=== PATIENT | male | born 1950 | race Caucasian/White ===

== ENCOUNTER → 2016-06-16 | Outpatient (CLI) | payer MEDICARE, OTHER ==
[2014-02-04 14:40] VITALS: BP 125/74
[~2016-06-16] MED LIST: CLON0.5T3 PO; IPRA4AER IH; PHEN100C PO; WARF1TAB PO
--- NOTE | 2016-06-16 10:09 | RAD ---
Abdominal aortic ultrasound, 06/16/2016: History: Screening for abdominal aortic aneurysm, smoker Duplex evaluation of the abdominal aorta was performed including grayscale, color-flow and spectral Doppler analysis. There are moderate scattered atherosclerotic plaques. The aorta is not dilated. The proximal iliac arteries are unremarkable. IMPRESSION: Aortic atherosclerosis without evidence of aneurysm.
== END | disposition home or self-care (01) ==
LOC: US 07:42
PROVIDERS: ATTEND Family Medicine
DX: Z13.6 Encounter for screening for cardiovascular disorders (principal); I70.0 Atherosclerosis of aorta; Z72.0 Tobacco use
CPT/HCPCS: 76770

== ENCOUNTER → 2016-11-09 | Outpatient (CLI) | payer MEDICARE, OTHER ==
[2014-02-04 14:40] VITALS: BP 125/74
[~2016-11-09] MED LIST changes: -WARF1TAB PO; +WARF1TAB74 PO
--- NOTE | 2016-11-09 13:12 | RAD ---
Right knee, 3 views, 11/09/2016: History: Knee pain AP standing and tangential patellar views of both knees were obtained as well as a weightbearing lateral view of the right knee, as requested. The knee joint spaces are well preserved. No fracture or dislocation is identified. The right patellofemoral articulation shows no abnormality. No significant joint effusion is seen. IMPRESSION: No significant right knee abnormality is detected.
== END | disposition home or self-care (01) ==
LOC: DXRAD 08:48
PROVIDERS: ATTEND Orthopaedic Surgery
DX: M25.561 Pain in right knee (principal)
CPT/HCPCS: 73564

== ENCOUNTER 2016-11-15 11:53 | Emergency (ER) | payer MEDICARE, OTHER ==
[~2016-11-15] VITALS: Ht 177.8 cm; Wt 67.1 kg
[2016-11-15 11:53] VITALS: BP 138/74
[2016-11-15] MEDS ORDERED: LIDOCAINE 1%/EPI 1:100,000 20 ML VIAL. IJ ONE (12:30)
[2016-11-15] MEDS ORDERED: LIDOCAINE 2%/EPI 1:100,000 20 ML VIAL. IJ ONE (12:30)
--- NOTE | 2016-11-15 12:42 | PHYS DOC ---
Past History Past Medical History: Asthma, Seizure, Other Past Surgical History: Cholecystectomy, Other Alcohol Use: Occasionally Drug Use: None Adult General Chief Complaint Chief Complaint: LACERATION/AVULSION HPI HPI Patient is a 66 year old M who presents with laceration on the right lower leg. This happened approximately 2 hours prior to arrival when he was tilling his garden. He was seen at [facility]. His wound was cleaned and dressed. He was advised to be seen in the emergency department for wound closure. No antibiotic was prescribed to him at that time. His risk factors include that he is anticoagulated with warfarin Review of Systems Review of Systems Constitutional: Denies fever or chills [] Eyes: Denies change in visual acuity, redness, or eye pain [] HENT: Denies nasal congestion or sore throat [] Respiratory: Denies cough or shortness of breath [] Cardiovascular: No additional information not addressed in HPI [] GI: Denies abdominal pain, nausea, vomiting, bloody stools or diarrhea [] : Denies dysuria or hematuria [] Musculoskeletal: Denies back pain or joint pain [] Integument: Negative except history of present illness Neurologic: Denies headache, focal weakness or sensory changes [] Endocrine: Denies polyuria or polydipsia [] Family History Family History Noncontributory Current Medications Current Medications Current Medications Medications (Trade) Dose Ordered Sig/Raheel Start Time Stop Time Status Last Admin Dose Admin Lidocaine/ Epinephrine (Xylocaine 1%-Epi 1:100,000) 20 ml 1X ONCE 11/15/16 12:30 11/15/16 12:31 DC Lidocaine/ Epinephrine (Xylocaine 2%-Epi 1:100,000) 20 ml 1X ONCE 11/15/16 12:30 11/15/16 12:31 DC Home medications were reviewed Allergies Allergies Allergies Coded Allergies Type Severity Reaction Last Updated Verified iodine Allergy Unknown 02/04/14 No Uncoded Allergies Type Severity Reaction Last Updated Verified IV dye Allergy Unknown 02/04/14 Physical Exam Physical Exam Constitutional: Well developed, well nourished, no acute distress, non-toxic appearance. [] HENT: Normocephalic, atraumatic, Eyes: EOMI, conjunctiva normal, no discharge. [] Cardiovascular:Heart rate regular rhythm, no murmur [] Lungs & Thorax: Bilateral breath sounds clear to auscultation [] Skin: Warm, dry, no erythema, no rash. [] L shaped laceration on the anterior right lower leg. Approximately 2 cm on each side of the. The laceration resulted in a thin skin flap at the edges and was deeper centrally. The wound was clean and hemostatic Neurologic: Alert and oriented X 3, normal motor function, normal sensory function, no focal deficits noted. [] Psychologic: Affect normal, judgement normal, mood normal. [] Current Patient Data Vital Signs Vital signs normal please refer to nursing documentation for specifics Radiology/Procedures Radiology/Procedures Indication: [] Procedure: The patient was placed in the appropriate position. The wound was cleaned with copious soaked in sterile water. The wound was dried and chlorhexidine was used around the wound. 2% lidocaine with epi was used to anesthetize the wound.The laceration was closed using 5-0 Ethilon. The wound area was then dressed with Tegaderm. Total repaired wound length: 4 cm. Wound description as above. The patient tolerated the procedure well. Complications: None. Course & Med Decision Making Course & Med Decision Making Pertinent Labs and Imaging studies reviewed. (See chart for details) Antibiotics were discussed and declined. Lauri was able to verbalize understanding that given the nature of his wound infection was possible. She was also able to verbalize that infection may result in or permanent disability if not treated appropriately. He declined a prophylactic antibiotic instead stating that he would be seen by his primary care doctor as soon as possible if he developed signs or symptoms of infection. Education was provided regarding signs and symptoms of infection including but not limited to warmth, redness, swelling and pain Dragon Disclaimer Dragon Disclaimer This chart was dictated in whole or in part using Voice Recognition software in a busy, high-work load, and often noisy Emergency Department environment. It may contain unintended and wholly unrecognized errors or omissions. Departure Departure: Impression: Primary Impression: Laceration of right lower leg Disposition: 01 HOME, SELF-CARE Condition: STABLE Referrals: COLETTE WOLF MD (PCP) Patient Instructions: Laceration Care, Adult Additional Instructions: Lauri was seen in the emergency department for laceration. No emergency medical condition was found on history or physical exam. His wound was cleaned and repaired. He was advised to follow-up for suture removal in 7-10 days. Education was provided regarding signs and symptoms of infection. If he develops signs or symptoms of infection he was advised to be seen as soon as possible by his physician or to return to the emergency room. Problem Qualifiers Primary Impression: Laceration of right lower leg Encounter type: initial encounter Qualified Codes: S81.811A - Laceration without foreign body, right lower leg, initial encounter COLETTE MAGALLON MD Nov 15, 2016 12:42
== END 2016-11-15 12:45 | disposition home or self-care (01) ==
LOC: ER 11:53
DX: S81.811A Laceration without foreign body, right lower leg, initial encounter (principal); J45.909 Unspecified asthma, uncomplicated; Z91.041 Radiographic dye allergy status; X58.XXXA Exposure to other specified factors, initial encounter; Y93.89 Activity, other specified; Y99.8 Other external cause status; Y92.89 Other specified places as the place of occurrence of the external cause
CPT/HCPCS: 12002; 99283-25

== ENCOUNTER 2016-11-16 09:44 | Emergency (ER) | payer MEDICARE, OTHER ==
[~2016-11-16] VITALS: Ht 177.8 cm; Wt 67.1 kg
[2016-11-16 10:05] VITALS: BP 140/85
--- NOTE | 2016-11-16 15:10 | ED.ADGEN ---
Past History Past Medical History: Asthma, Seizure, Other Past Surgical History: Cholecystectomy, Other Alcohol Use: Occasionally Drug Use: None Adult General Chief Complaint Chief Complaint Wound recheck [facility] HPI Patient is a 66-year-old male on Coumadin who is evaluated and treated emergency department yesterday for laceration of left lower leg who presents for wound reevaluation. Patient was yesterday while in the emergency department and a Tegaderm was placed over the laceration site. Patient noted bright blood trapped underneath Tagaderm site presented in was concern for possible ongoing bleeding presents for reevaluation. On evaluation, the patient does not have active bleeding. There is minimal red blood around margins of wound, which is otherwise intact. Patient has his INR checked monthly and is due to have his INR rechecked in the next 2 days. No other acute symptoms or complaints Review of Systems Review of Systems ROS as per HPI. All other ROS are negative.[] Allergies Allergies Allergies Coded Allergies Type Severity Reaction Last Updated Verified iodine Allergy Unknown 02/04/14 No Uncoded Allergies Type Severity Reaction Last Updated Verified IV dye Allergy Unknown 02/04/14 Physical Exam Physical Exam Constitutional: Well developed, well nourished, no acute distress, non-toxic appearance. [] HENT: Normocephalic, atraumatic, bilateral external ears normal, oropharynx moist, no oral exudates, nose normal. [] Eyes: PERRLA, EOMI, conjunctiva normal, no discharge. [] Neck: Normal range of motion, no tenderness, supple, no stridor. [] Cardiovascular:Heart rate regular rhythm, no murmur [] Lungs & Thorax: Bilateral breath sounds clear to auscultation [] Abdomen: Bowel sounds normal, soft, no tenderness, no masses, no pulsatile masses. [] Skin: Warm, dry, no erythema, no rash. [] Back: No tenderness. [] Extremities: No tenderness, no cyanosis, no clubbing, ROM intact, no edema. [] Neurologic: Alert and oriented. [] Psychologic: Affect normal, judgement normal, mood normal. [] Current Patient Data Vital Signs Vital Signs Date Time Temp Pulse Resp B/P (MAP) Pulse Ox O2 Delivery O2 Flow Rate FiO2 11/16/16 10:05 65 18 140/85 (103) 98 Room Air 11/16/16 09:45 97.8 EKG EKG [] Radiology/Procedures Radiology/Procedures : Course & Med Decision Making Course & Med Decision Making Pertinent Labs and Imaging studies reviewed. (See chart for details) [Wound dressing changed. Patient instructed to follow up with PCP for INR. Typical wound care instructions improved. ] Final Impression Final Impression [1. Wound Recheck] Problems: Dragon Disclaimer Dragon Disclaimer This electronic medical record was generated, in whole or in part, using a voice recognition dictation system. LAURA OCHOA DO Nov 16, 2016 15:10
== END 2016-11-16 10:05 | disposition home or self-care (01) ==
LOC: ER 09:44
DX: S81.812A Laceration without foreign body, left lower leg, initial encounter (principal); J45.909 Unspecified asthma, uncomplicated; Z91.041 Radiographic dye allergy status; X58.XXXA Exposure to other specified factors, initial encounter; Y93.89 Activity, other specified; Y99.8 Other external cause status; Y92.89 Other specified places as the place of occurrence of the external cause
CPT/HCPCS: 99283

== ENCOUNTER 2016-11-25 08:15 | Emergency (ER) | payer MEDICARE, OTHER ==
[2016-11-25 08:25] VITALS: BP 127/80
--- NOTE | 2016-11-25 08:56 | PHYS DOC ---
Past History Past Medical History: Asthma, Seizure, Other Past Surgical History: Cholecystectomy, Other Alcohol Use: Occasionally Drug Use: None Adult General Chief Complaint Chief Complaint: SUTURE/STAPLE REMOVAL HPI HPI 66-year-old male presenting the emergency department after having a wound repair by simple interrupted sutures about 10 days ago. He presents for suture removal. He reports his wound is feeling better. ED course: 66-year-old male presenting to the emergency department for wound reevaluation and suture removal. Sutures were removed without any complications. The wound is healing without any complications. The patient was then discharged home in stable condition to follow up with their primary care physician over the next 2-3 days. They were to return if their symptoms worsened or if they were concerned for any reason. [id number] discharge instructions and return precautions were given. Patient's questions were answered to their satisfaction. Patient is comfortable plan. Allergies Allergies Allergies Coded Allergies Type Severity Reaction Last Updated Verified iodine Allergy Unknown 02/04/14 No Uncoded Allergies Type Severity Reaction Last Updated Verified IV dye Allergy Unknown 02/04/14 Physical Exam Physical Exam Constitutional: Well developed, well nourished, no acute distress, non-toxic appearance. [] HENT: Normocephalic, atraumatic, bilateral external ears normal, oropharynx moist, no oral exudates, nose normal. [] Eyes: PERRLA, EOMI, conjunctiva normal, no discharge. [] Neck: Normal range of motion, no tenderness, supple, no stridor. [] Cardiovascular:Heart rate regular rhythm, no murmur [] Lungs & Thorax: Bilateral breath sounds clear to auscultation [] Abdomen: Bowel sounds normal, soft, no tenderness, no masses, no pulsatile masses. [] Skin: Warm, dry, no erythema, no rash. [] Back: No tenderness, no CVA tenderness. [] Extremities: No tenderness, no cyanosis, no clubbing, ROM intact, no edema. [] Neurologic: Alert and oriented X 3, normal motor function, normal sensory function, no focal deficits noted. [] Psychologic: Affect normal, judgement normal, mood normal. [] EKG EKG [] Radiology/Procedures Radiology/Procedures [] Course & Med Decision Making Course & Med Decision Making Pertinent Labs and Imaging studies reviewed. (See chart for details) [] Dragon Disclaimer Dragon Disclaimer This chart was dictated in whole or in part using Voice Recognition software in a busy, high-work load, and often noisy Emergency Department environment. It may contain unintended and wholly unrecognized errors or omissions. Departure Departure: Impression: Primary Impression: Encounter for evaluation of wound Disposition: HOME, SELF-CARE Condition: STABLE Referrals: COLETTE WOLF MD (PCP) Patient Instructions: Wound Care, [id number] Additional Instructions: Thank you for allowing us to participate in your care today. Followup with your primary care physician in 3 days if your symptoms do not improve. Call your Primary Doctor tomorrow and inform them of your visit today. If you do not have a primary care provider you can ask for a list of our primary care providers. Return to the emergency department you have any new or concerning findings. This should be evaluated by the primary care physician and any necessary consulting services for continued management within a few days after discharge. Return to emergency room if you have any new or concerning symptoms including but not limited to fever, chills, nausea, vomiting, intractable pain, any new rashes, chest pain, shortness of air, uncontrolled bleeding, difficulty breathing, and/or vision loss. JESENIA NEGRON MD Nov 25, 2016 08:56
== END 2016-11-25 09:00 | disposition home or self-care (01) ==
LOC: ER 08:15
DX: S81.811D Laceration without foreign body, right lower leg, subsequent encounter (principal); J45.909 Unspecified asthma, uncomplicated; Z91.041 Radiographic dye allergy status; X58.XXXD Exposure to other specified factors, subsequent encounter; Y99.8 Other external cause status; Y92.89 Other specified places as the place of occurrence of the external cause
CPT/HCPCS: 99281

== ENCOUNTER 2016-12-10 09:20 | Emergency (ER) | payer MEDICARE, OTHER ==
[~2016-12-10] VITALS: Ht 177.8 cm; Wt 67.1 kg
[2016-12-10 09:30] VITALS: BP 133/65
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
--- NOTE | 2016-12-10 10:11 | RAD ---
CT scan of the head without contrast 12/10/2016 Clinical History: Patient hit his head on a dresser this morning.. Technique: Unenhanced, contiguous, 5 mm axial sections were obtained through the head. One or more of the following individualized dose reduction techniques were utilized for this study: 1. Automated exposure control. 2. Adjustment of the mA and/or kV according to patient size. 3. Use of iterative reconstruction technique. Findings: Comparison study is dated 02/04/2014. Patient is post right frontal parietal hole placement. Postsurgical changes are seen involving medial aspects of the maxillary sinuses and ethmoid air cells bilaterally. 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 Prominent CSF collection is seen posterior to the cerebellum which is unchanged. Asymmetric enlargement of the occipital horn of the right lateral ventricle is unchanged. There is generalized parenchymal atrophy. No acute focal abnormality is seen. No skull fracture is noted. Impression: No acute intracranial abnormality is seen. CT scan of the cervical spine without contrast 12/10/2016 Clinical history: Neck pain post injury. Technique: Unenhanced, contiguous, 0.625 mm axial sections were obtained through the cervical spine. 3 mm reconstructed sagittal, axial, and and coronal images were obtained. One or more of the following individualized dose reduction techniques were utilized for this study: 1. Automated exposure control. 2. Adjustment of the mA and/or kV according to patient size. 3. Use of iterative reconstruction technique. Findings: Sagittal and coronal reconstructed images demonstrate mild lateral curvature of the cervical spine convex to the left. There is straightening of the normal cervical lordosis. Degenerative changes consisting of disc space narrowing, vertebral endplate sclerosis and mild anterior and posterior vertebral body osteophyte formation are seen predominantly at C6-7. No fracture or subluxation of the cervical vertebrae seen. Degenerative changes are seen involving the uncovertebral and facet joints throughout the cervical disc spaces. Impression: No fracture or subluxation of the cervical vertebra is seen.
== END 2016-12-10 11:07 | disposition home or self-care (01) ==
LOC: ER 09:20
DX: S01.312A Laceration without foreign body of left ear, initial encounter (principal); S09.90XA Unspecified injury of head, initial encounter; J45.909 Unspecified asthma, uncomplicated; Z91.041 Radiographic dye allergy status; W06.XXXA Fall from bed, initial encounter; Y93.84 Activity, sleeping; Y99.8 Other external cause status; Y92.89 Other specified places as the place of occurrence of the external cause
CPT/HCPCS: 12013; 36415; 70450; 72125; 85610; 85730; 99285-25

== ENCOUNTER → 2018-05-16 | Outpatient (CLI) | payer MEDICARE, OTHER ==
[~2018-05-16] MED LIST changes: +CLON0.5T11 PO; -CLON0.5T3 PO
--- NOTE | 2018-05-16 13:06 | RAD ---
EXAM: Right lower extremity venous Doppler sonogram. HISTORY: Pain and swelling. TECHNIQUE: Moore scale and color Doppler sonographic evaluation of the right lower extremity veins with spectral waveform analysis was performed. FINDINGS: There is normal color flow, normal compressibility and there are normal spectral waveforms in the common femoral, superficial femoral, popliteal, and posterior tibial veins. The right greater saphenous vein has been ablated. IMPRESSION: No Doppler evidence of lower extremity deep venous thrombosis. Electronically signed by: Yamel Gordon MD (05/16/2018 1:03 PM) [place] [id number]
== END | disposition home or self-care (01) ==
LOC: US 12:29
PROVIDERS: ATTEND Family Medicine
DX: M79.661 Pain in right lower leg (principal)
CPT/HCPCS: 93971

== ENCOUNTER 2018-11-13 17:09 | Emergency (ER) | payer MEDICARE, OTHER ==
[~2018-11-13] VITALS: Ht 177.8 cm; Wt 71.1 kg
[2018-11-13] MEDS ORDERED: diphenhydrAMINE 50 MG/ML VIAL IM ONE (18:30)
[2018-11-13] MEDS ORDERED: methylPREDNISolone SOD SUCC PF 125 MG/2 ML VIAL. IM ONE (18:30)
--- NOTE | 2018-11-13 18:41 | PHYS DOC ---
Past History Past Medical History: Other Past Surgical History: Cholecystectomy, Other Alcohol Use: Rarely Drug Use: None Adult General Chief Complaint Chief Complaint: INSECT BITE HPI HPI Patient is a 68-year-old male who presents with complaint of numerous bee stings that he sustained while doing yard work outside. He states that he was weed whacking in the area [place] the [place] when he went over ground 5 and was stung by numerous bees to his truncal region, his legs and his left ear. He denies any chest pain or shortness of breath. He also denies any difficulty swallowing or swelling around the mouth or eyes. He does complain of diffuse burning and itching. He states that bee stings occurred a little over an hour ago.[] Review of Systems Review of Systems Constitutional: Denies fever or chills [] HENT: Denies nasal congestion or sore throat [] Respiratory: Denies cough or shortness of breath [] Cardiovascular: No additional information not addressed in HPI [] Integument: Reports numerous bee stings with diffuse itching and burning[] Neurologic: Denies headache, focal weakness or sensory changes [] Current Medications Current Medications Current Medications Medications (Trade) Dose Ordered Sig/Raheel Start Time Stop Time Status Last Admin Dose Admin Diphenhydramine HCl (Benadryl) 50 mg 1X ONCE 11/13/18 18:30 11/13/18 18:31 DC Methylprednisolone Sodium Succinate (SOLU-Medrol 125MG VIAL) 125 mg 1X ONCE 11/13/18 18:30 11/13/18 18:31 DC Allergies Allergies Allergies Coded Allergies Type Severity Reaction Last Updated Verified iodine Allergy Unknown 02/04/14 No Uncoded Allergies Type Severity Reaction Last Updated Verified IV dye Allergy Unknown 02/04/14 Physical Exam Physical Exam Constitutional: Well developed, well nourished, no acute distress, non-toxic appearance. [] Cardiovascular:Heart rate regular rhythm, no murmur [] Lungs & Thorax: Bilateral breath sounds clear to auscultation [] Skin: There are numerous raised, erythematous areas with central pallor consistent with bee stings. [] Extremities: No tenderness, no cyanosis, no clubbing, ROM intact, no edema. [] Neurologic: Alert and oriented X 3, no focal deficits noted. [] Current Patient Data Vital Signs Vital Signs Date Time Temp Pulse Resp B/P (MAP) Pulse Ox O2 Delivery O2 Flow Rate FiO2 11/13/18 17:09 97.6 87 18 92 Room Air EKG EKG [] Radiology/Procedures Radiology/Procedures [] Course & Med Decision Making Course & Med Decision Making Pertinent Labs and Imaging studies reviewed. (See chart for details) [] Dragon Disclaimer Dragon Disclaimer This electronic medical record was generated, in whole or in part, using a voice recognition dictation system. Departure Departure: Impression: Primary Impression: Local reaction to bee sting Disposition: HOME, SELF-CARE Condition: STABLE Referrals: COLETTE WOLF MD (PCP) Patient Instructions: Bee, Wasp, or Hornet Sting Problem Qualifiers Primary Impression: Local reaction to bee sting Encounter type: initial encounter Injury intent: accidental or unintentional Qualified Codes: T63.441A - Toxic effect of venom of bees, accidental (unintentional), initial encounter LEO MEHTA Jr. DO Nov 13, 2018 18:41
[2018-11-13 18:48] VITALS: BP 140/81
== END 2018-11-13 19:05 | disposition home or self-care (01) ==
LOC: ER 17:09
DX: T63.441A Toxic effect of venom of bees, accidental (unintentional), initial encounter (principal); Z88.8 Allergy status to other drugs, medicaments and biological substances; Y92.89 Other specified places as the place of occurrence of the external cause
CPT/HCPCS: 96372; 99284; J1200; J2930

== ENCOUNTER 2019-08-26 12:16 | Emergency (ER) | payer MEDICARE, OTHER ==
[~2019-08-26] VITALS: Ht 177.8 cm; Wt 71.1 kg
[~2019-08-26 12:16] MED LIST changes: -CLON0.5T11 PO; +CLON0.5T4 PO; +WARF1TAB2 PO; -WARF1TAB74 PO
--- NOTE | 2019-08-26 12:42 | PHYS DOC ---
Past History Past Medical History: CVA, Seizure, Other Past Surgical History: Cholecystectomy, Other Alcohol Use: None Drug Use: None General Adult EDM: Chief Complaint: MECHANICAL FALL HPI: HPI: Patient is a 69-year-old male who presents to the emergency department for evaluation. He was unloading some brush from the back of his pickup truck when he fell off of the tailgate, landing on his right side. He has a dinner fork deformity noted to his right wrist, as well as some right rib pain. He DENIES any other injuries, denies hitting his head, denies any neck or back pain, or hip or pelvis or lower extremity pain. He denies any abdominal pain. He denies any dizziness or lightheadedness. He did not lose consciousness. He has a past history of a stroke and used to take warfarin but has been off of this medication for about a year he states. He does not take any other anticoagulants other than aspirin. Palpation and movement of his right upper extremity and palpation of his ribs worsens his pain. There are no alleviating factors to his symptoms otherwise. Susansaran is UTD. Review of Systems: Review of Systems: Constitutional: Denies fever or chills Eyes: Denies change in visual acuity HENT: Denies nasal congestion or sore throat Respiratory: Denies cough or shortness of breath Cardiovascular: Denies chest pain or edema GI: Denies abdominal pain, nausea, vomiting, bloody stools or diarrhea : Denies dysuria Musculoskeletal: Denies back pain or joint pain, other than the right wrist. Integument: Denies rash Neurologic: Denies headache, focal weakness or sensory changes Endocrine: Denies polyuria or polydipsia Lymphatic: Denies swollen glands Psychiatric: Denies depression or anxiety Heart Score: Risk Factors: Risk Factors: DM, Current or recent (<one month) smoker, HTN, HLP, family history of CAD, obesity. Risk Scores: Score 0 - 3: 2.5% MACE over next 6 weeks - Discharge Home Score 4 - 6: 20.3% MACE over next 6 weeks - Admit for Clinical Observation Score 7 - 10: 72.7% MACE over next 6 weeks - Early Invasive Strategies Current Medications: Current Meds: Current Medications Medications (Trade) Dose Ordered Sig/Raheel Start Time Stop Time Status Last Admin Dose Admin Morphine Sulfate (Morphine 4mg Syringe) 4 mg 1X ONCE 08/26/19 12:45 08/26/19 12:46 UNV Allergies: Allergies: Allergies Coded Allergies Type Severity Reaction Last Updated Verified iodine Allergy Unknown 02/04/14 No Uncoded Allergies Type Severity Reaction Last Updated Verified IV dye Allergy Unknown 02/04/14 Physical Exam: PE: PHYSICAL EXAM: CONSTITUTIONAL: Well developed, well nourished HEAD: normocephalic, atraumatic EENT: PERRL, EOMI. Conjunctivae normal color, sclerae non-icteric; moist mucous membranes. NECK: Supple, non-tender; no meningismus. There is full, painless range of motion of the cervical spine, without any focal bony midline tenderness to palpation. LUNGS: Lungs CTA, breathing even and unlabored. Normal air movement. HEART: Regular rate and rhythm, no murmur CHEST: No deformity; there is tenderness to palpation of the right lateral costal margin. ABDOMEN: The abdomen is soft, and non-tender, no masses or bruits. The right upper quadrant is nontender. EXTREM: There is a dinner fork deformity noted to the right wrist, there are superficial skin tears on the right forearm, there are no other areas of tenderness to palpation. The remainder the extremities are atraumatic, with normal ROM; no deformity, no calf tenderness. Normal pulses palpable in all extremities. There is no pedal edema. Hips and pelvis are nontender. SKIN: No rash; no diaphoresis NEURO: Alert; normal cognition, mildly impaired speech, consistent with a stated history of prior CVA, now baseline for patient; CN's grossly intact; strength grossly intact without focal deficit. BACK: No CVA TTP. There is no bony tenderness to palpation of the thoracic or lumbar spine. Current Patient Data: Vital Signs: Vital Signs Date Time Temp Pulse Resp B/P (MAP) Pulse Ox O2 Delivery O2 Flow Rate FiO2 08/26/19 12:34 98.5 80 18 127/86 (100) 90 Room Air EKG: EKG: [] Radiology/Procedures: Radiology/Procedures: PROCEDURE: RIBS RIGHT AND PA CHEST RIBS RIGHT AND PA CHEST Clinical Indication: Reason: fall, pain / Spl. Instructions: / History: Comparison: None. Findings: Atherosclerotic aortic arch. Low lung volumes. Bibasilar airspace opacities may be atelectasis. No pneumothorax. Biapical pleural parenchymal opacities may be scarring. There is acute traumatic minimally displaced fracture of the right posterior lateral eighth rib. There also appears to be acute traumatic nondisplaced fracture of the right lateral sixth rib. Given these findings acute traumatic fractures of the right seventh and ninth ribs are difficult to exclude. IMPRESSION: Acute traumatic minimally displaced fractures of the right lateral sixth and posterior lateral eighth ribs. PROCEDURE: WRIST 3V RIGHT WRIST 3V RIGHT Clinical Indication: Reason: fall, pain / Spl. Instructions: / History: Comparison: None. Findings: There is acute traumatic mildly comminuted fracture of the distal metaphysis of the radius. The dominant fracture fragment is laterally and dorsally displaced a half shaft length with volar vertex angulation. There is intra-articular extension of the fracture. The dominant fracture fragment and the first carpal row remain in articulation. There is acute traumatic nondisplaced fracture of the ulnar styloid. There is displacement medially and dorsally with overriding of fracture fragments. There is soft tissue swelling of the wrist most apparent along the volar surface. There is a tiny bone fragment along the dorsal surface of the first metacarpal row and triquetral fracture cannot be excluded. IMPRESSION: 1. Acute traumatic displaced fractures of the distal radius and ulnar styloid. 2. Cannot exclude triquetral fracture. PROCEDURE: WRIST 3V RIGHT Examination: WRIST 3V RIGHT History: Reason: post reduction / Spl. Instructions: / History: Comparison/Correlation: Right wrist x-ray exam performed earlier on the same day Findings: Total of 3 images of the right wrist were obtained. Overlying cast material limits evaluation. Partial reduction of the distal radial comminuted fractures noted. Ulnar sided fracture again seen with displacement of the ulnar styloid. Impression: Partial reduction of distal radial comminuted fracture. Displaced ulnar styloid fracture is unchanged. Course & Med Decision Making: Course & Med Decision Making FRACTURE REDUCTION PROCEDURE NOTE: A hematoma block was placed on the right wrist, after cleansing of the skin with alcohol. 10 cc of lidocaine 1% was used. Good anesthetic effect was obtained. Using manual manipulation and traction, the fracture was clinically reduced with improved alignment clinically. A sugar tong splint was placed by myself, and post procedure x-ray has been requested. Patient tolerated procedure well. 2:15 PM: The patient's condition remains stable. I discussed test results in detail with the patient, the need for close orthopedic follow-up, the use of incentive spirometry and return precautions for further complications or treatment. Dragbecky Disclaimer: Dragon Disclaimer: This electronic medical record was generated, in whole or in part, using a voice recognition dictation system. Departure Departure: Impression: Primary Impression: Closed fracture distal radius and ulna Additional Impressions: Rib fractures Accidental fall Disposition: 01 HOME/RESIDENCE PRIOR TO ADM Condition: STABLE Referrals: COLETTE WOLF MD (PCP) Patient Instructions: Cast or Splint Care, Incentive Spirometer, Rib Fracture, Wrist Fracture Additional Instructions: Follow-up with [facility]opedics at [facility], call [phone] to schedule an appointment. The prescribed pain medication may cause drowsiness. Use caution while taking. Use the incentive spirometer 10-12 times per hour to ensure deep breathing. Return to medical care for any new or worsening symptoms, development of cough, fever, increasing difficulty breathing or any other new or concerning symptoms. Scripts Hydrocodone Bit/Acetaminophen (NORCO 5-325 TABLET) 1 Each Tablet 1 TAB PO PRN Q6HRS PRN for PAIN, #20 TAB 0 Refills Prov: JOCELYNE ROBERTSON MD 08/26/19 Justification of Admission: Justification of Admission: Justification of Admission Dx: N/A JOCELYNE ROBERTSON MD Aug 26, 2019 12:42
[2019-08-26] MEDS ORDERED: MORPHINE SULFATE 4 MG/ML DISP.SYRIN. IV ONE (12:45)
[2019-08-26] MEDS ORDERED: LIDOCAINE 1% Multi-Dose 20 ML VIAL. ONE (13:10)
--- NOTE | 2019-08-26 13:16 | RAD ---
WRIST 3V RIGHT Clinical Indication: Reason: fall, pain / Spl. Instructions: / History: Comparison: None. Findings: There is acute traumatic mildly comminuted fracture of the distal metaphysis of the radius. The dominant fracture fragment is laterally and dorsally displaced a half shaft length with volar vertex angulation. There is intra-articular extension of the fracture. The dominant fracture fragment and the first carpal row remain in articulation. There is acute traumatic nondisplaced fracture of the ulnar styloid. There is displacement medially and dorsally with overriding of fracture fragments. There is soft tissue swelling of the wrist most apparent along the volar surface. There is a tiny bone fragment along the dorsal surface of the first metacarpal row and triquetral fracture cannot be excluded. IMPRESSION: 1. Acute traumatic displaced fractures of the distal radius and ulnar styloid. 2. Cannot exclude triquetral fracture. Electronically signed by: Levi Ford MD (08/26/2019 1:12 PM) [facility]
--- NOTE | 2019-08-26 13:24 | RAD ---
RIBS RIGHT AND PA CHEST Clinical Indication: Reason: fall, pain / Spl. Instructions: / History: Comparison: None. Findings: Atherosclerotic aortic arch. Low lung volumes. Bibasilar airspace opacities may be atelectasis. No pneumothorax. Biapical pleural parenchymal opacities may be scarring. There is acute traumatic minimally displaced fracture of the right posterior lateral eighth rib. There also appears to be acute traumatic nondisplaced fracture of the right lateral sixth rib. Given these findings acute traumatic fractures of the right seventh and ninth ribs are difficult to exclude. IMPRESSION: Acute traumatic minimally displaced fractures of the right lateral sixth and posterior lateral eighth ribs. Electronically signed by: Levi Ford MD (08/26/2019 1:21 PM) [facility]
--- NOTE | 2019-08-26 14:22 | RAD ---
Examination: WRIST 3V RIGHT History: Reason: post reduction / Spl. Instructions: / History: Comparison/Correlation: Right wrist x-ray exam performed earlier on the same day Findings: Total of 3 images of the right wrist were obtained. Overlying cast material limits evaluation. Partial reduction of the distal radial comminuted fractures noted. Ulnar sided fracture again seen with displacement of the ulnar styloid. Impression: Partial reduction of distal radial comminuted fracture. Displaced ulnar styloid fracture is unchanged. Electronically signed by: Vazquez Lord MD (08/26/2019 2:19 PM) [id number]
[2019-08-26 14:30] VITALS: BP 141/89
[2019-08-26] MEDS ORDERED: HYDR-3165 PO (14:47)
[2019-08-26] MEDS ORDERED: MORPHINE SULFATE 2 MG/ML DISP.SYRIN. ONE (14:55)
[2019-08-26] MEDS ORDERED: MORPHINE SULFATE 2 MG/ML DISP.SYRIN. IV ONE (15:00)
== END 2019-08-26 15:00 | disposition home or self-care (01) ==
LOC: ER 12:16
DX: S52.501A Unspecified fracture of the lower end of right radius, initial encounter for closed fracture (principal); S52.601A Unspecified fracture of lower end of right ulna, initial encounter for closed fracture; S22.41XA Multiple fractures of ribs, right side, initial encounter for closed fracture; Z88.8 Allergy status to other drugs, medicaments and biological substances; W18.39XA Other fall on same level, initial encounter; Y93.89 Activity, other specified; Y92.89 Other specified places as the place of occurrence of the external cause; Y99.8 Other external cause status; Z86.73 Personal history of transient ischemic attack (TIA), and cerebral infarction without residual deficits
CPT/HCPCS: 25605; 71101; 73110; 96374; 96376; 99284; G0238; J2270

== ENCOUNTER → 2019-10-20 | Outpatient (CLI) | payer MEDICARE, OTHER ==
[~2019-10-20] MED LIST changes: +HYDR-3165 PO
--- NOTE | 2019-10-20 14:09 | RAD ---
3 views the right wrist compared to similar exam dated August 252019 for postop wrist surgery after 1 month. FINDINGS: The cast has been removed. There is been interval plate and screw fixation of a comminuted distal radial fracture, with near-anatomic alignment maintained. Subtle evidence of callus formation is noted. There are couple of ossific fragments distal to the ulna which may represent fragments of the ulnar styloid. There is an additional small avulsed fragment along the dorsal aspect of the mid carpal row, donor site uncertain. IMPRESSION: 1. Postsurgical and posttreatment changes of the right wrist with near-anatomic alignment preserved in subtle evidence of ongoing healing. Electronically signed by: Wes Scott MD (10/20/2019 2:06 PM) [id number]
== END | disposition home or self-care (01) ==
LOC: DXRAD 13:31
PROVIDERS: ATTEND Physician Assistant
DX: S52.551D Other extraarticular fracture of lower end of right radius, subsequent encounter for closed fracture with routine healing (principal); X58.XXXD Exposure to other specified factors, subsequent encounter
CPT/HCPCS: 73110

== ENCOUNTER → 2019-11-17 | Outpatient (CLI) | payer MEDICARE, OTHER ==
--- NOTE | 2019-11-17 17:28 | RAD ---
WRIST 3V RIGHT 11/17/2019 12:00 AM INDICATION: Fracture follow-up, fracture wrist in August. COMPARISON: 10/20/2019. TECHNIQUE: 3 views of the right wrist are provided. FINDINGS/ IMPRESSION: Bohler plate and screw fixation of the distal radius is noted. There is no lucency surrounding the hardware. No acute fracture is identified. Chronic ulnar styloid process fracture. There is remodeling of the scaphoid secondary to remote fracture. Fragment along the posterior carpal row could reflect a remote healed triquetral fracture. There is continued interval osseous healing involving the distal radial fracture with associated sclerosis and diminishing fracture line. No new fracture. Electronically signed by: Georgie Ca MD (11/17/2019 5:25 PM) [id number]
== END | disposition home or self-care (01) ==
LOC: RAD 12:06
PROVIDERS: ATTEND Physician Assistant
DX: S52.611D Displaced fracture of right ulna styloid process, subsequent encounter for closed fracture with routine healing (principal); X58.XXXD Exposure to other specified factors, subsequent encounter
CPT/HCPCS: 73110

== ENCOUNTER 2020-10-11 12:01 | Emergency (ER) | payer MEDICARE, OTHER ==
[~2020-10-11] VITALS: Ht 177.8 cm; Wt 74.0 kg
[2020-10-11 12:34] VITALS: BP 127/75
[2020-10-11] MEDS ORDERED: ACETAMINOPHEN 325 MG TABLET PO ONE (13:45)
--- NOTE | 2020-10-11 13:59 | RAD ---
PQRS Compliance Statement: One or more of the following individualized dose reduction techniques were utilized for this examinat ion: 1. Automated exposure control 2. Adjustment of the mA and/or kV according to patient size 3. Use of iterative reconstruction technique CT HEAD AND CERVICAL SPINE WITHOUT CONTRAST History: Reason: head injury Comparison: CT head and cervical spine without contrast December 10, 2016. Procedure: Axial images are obtained of the head from the skull base through the vertex without IV co ntrast. Noncontrast helical CT of the cervical spine was performed. Axial, sagittal, and coronal rec onstructions were obtained. 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 Prominent posterior fossa CSF spaces are unchanged suggesting Dandy-Walker continuum. A few small periventricul ar white matter hypodensities are unchanged. No mass-effect, midline shift, hemorrhage or obvious acute infarction is identified. Basilar cistern s are patent. Bone windows demonstrate no significant calvarial abnormality. There has been previous sinus surgery. Mucosal thickening right frontal sinus and minimal in the inferior bilateral maxillary sinuses. 2 ri ght convexity calvarial bone holes and stable. Left mastoid air cells are partially opacified. There is no evidence of acute fracture or acute malalignment of the cervical spine. There are no perched or jumped facet joints. There is vacuum disc phenomenon and mild endplate spurri ng of C6/C7. The vertebral body height and alignment are maintained. Other disc spaces are maintained . No significant narrowing of the central canal is identified. Visualized soft tissues of the neck demonstrate no significant abnormalities. The visualized lung api mayte are clear. IMPRESSION: 1. No acute intracranial abnormality. 2. Stable congenital and chronic findings as above. 3. No acute fracture of the cervical spine. Electronically signed by: Levi Ford MD (10/11/2020 1:57 PM) [id number]
--- NOTE | 2020-10-11 13:59 | PHYS DOC ---
Past History Past Medical History: CVA, Seizure, Other Past Surgical History: Cholecystectomy, Other Additional Past Surgical Histo: hernia, Alcohol Use: None Drug Use: None General Adult EDM: Chief Complaint: HEAD INJURY/TRAUMA HPI: HPI: Patient is a 78-year-old male being seen in the ER for head injury. Patient reports that he was in the parking lot of [place] when he stepped out of his car and hit his head on the edge of his vehicle. Patient denies any loss of consciousness, blood thinners, vision changes, nausea, vomiting. He reports that he is feeling lightheaded and has a frontal headache that he rates 5 out of 10. Patient reports that he is concerned because he has a history of a subdural bleed. Review of Systems: Review of Systems: 14 body systems of the review of systems have been reviewed. See HPI for pertinent positive and negative responses, otherwise all other systems are negative, nonpertinent or noncontributory Current Medications: Current Meds: Current Medications Medications (Trade) Dose Ordered Sig/Raheel Start Time Stop Time Status Last Admin Dose Admin Acetaminophen (Tylenol) 650 mg 1X ONCE 10/11/20 13:45 10/11/20 13:46 DC Allergies: Allergies: Allergies Coded Allergies Type Severity Reaction Last Updated Verified Iodinated Contrast Media Allergy Unknown 08/26/19 Yes iodine Allergy Unknown 02/04/14 No Physical Exam: PE: Constitutional: Well developed, well nourished, no acute distress, non-toxic appearance. [] HENT: Normocephalic, bilateral external ears normal, oropharynx moist, no oral exudates, nose normal, patient has a 4 cm superficial laceration/abrasion noted to his left anterior head, there is no active bleeding, no other wounds/ecchymosis noted to the head [] Eyes: PERRLA, EOMI, conjunctiva normal, no discharge. [] Neck: Normal range of motion, no tenderness, supple, no stridor. [] Cardiovascular:Heart rate regular rhythm, no murmur [] Lungs & Thorax: Bilateral breath sounds clear to auscultation [] Abdomen: Bowel sounds normal, soft, no tenderness, no masses, no pulsatile masses. [] Skin: Warm, dry, no erythema, no rash. [] Back: No tenderness, normal range of motion, patient able to bear weight and ambulate with steady gait Extremities: No tenderness, no cyanosis, no clubbing, ROM intact, no edema. [] Neurologic: Alert and oriented X 3, normal motor function, normal sensory function, no focal deficits noted. [] Psychologic: Affect normal, judgement normal, mood normal. [] Current Patient Data: Vital Signs: Vital Signs Date Time Temp Pulse Resp B/P (MAP) Pulse Ox O2 Delivery O2 Flow Rate FiO2 10/11/20 12:34 98.6 69 14 127/75 96 Room Air EKG: EKG: [] Radiology/Procedures: Radiology/Procedures: REASON: head injury PROCEDURE: CT HEAD AND CERVICAL SPINE [facility] Compliance Statement: One or more of the following individualized dose reduction techniques were utilized for this examination: 1. Automated exposure control 2. Adjustment of the mA and/or kV according to patient size 3. Use of iterative reconstruction technique CT HEAD AND CERVICAL SPINE WITHOUT CONTRAST History: Reason: head injury Comparison: CT head and cervical spine without contrast December 10, 2016. Procedure: Axial images are obtained of the head from the skull base through the vertex without IV contrast. Noncontrast helical CT of the cervical spine was performed. Axial, sagittal, and coronal reconstructions were obtained. 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 Prominent posterior fossa CSF spaces are unchanged suggesting Dandy-Walker continuum. A few small periventricular white matter hypodensities are unchanged. No mass-effect, midline shift, hemorrhage or obvious acute infarction is identified. Basilar cisterns are patent. Bone windows demonstrate no significant calvarial abnormality. There has been previous sinus surgery. Mucosal thickening right frontal sinus and minimal in the inferior bilateral maxillary sinuses. 2 right convexity calvarial bone holes and stable. Left mastoid air cells are partially opacified. There is no evidence of acute fracture or acute malalignment of the cervical spine. There are no perched or jumped facet joints. There is vacuum disc phenomenon and mild endplate spurring of C6/C7. The vertebral body height and alignment are maintained. Other disc spaces are maintained. No significant narrowing of the central canal is identified. Visualized soft tissues of the neck demonstrate no significant abnormalities. The visualized lung apices are clear. IMPRESSION: 1. No acute intracranial abnormality. 2. Stable congenital and chronic findings as above. 3. No acute fracture of the cervical spine. Electronically signed by: Levi Garcia MD (10/11/2020 1:57 PM) [id number] DICTATED AND SIGNED BY: LEVI GARCIA MD DATE: 10/11/20 [id number] CC: COLETTE WOLF MD; JUDY DE LA O KENO TERMINAL OPERATOR ~MTH0 0 Heart Score: C/O Chest Pain: No Risk Factors: Risk Factors: DM, Current or recent (<one month) smoker, HTN, HLP, family history of CAD, obesity. Risk Scores: Score 0 - 3: 2.5% MACE over next 6 weeks - Discharge Home Score 4 - 6: 20.3% MACE over next 6 weeks - Admit for Clinical Observation Score 7 - 10: 72.7% MACE over next 6 weeks - Early Invasive Strategies Course & Med Decision Making: Course & Med Decision Making Pertinent Labs and Imaging studies reviewed. (See chart for details) Patient is a 70-year-old male being seen in the ER following a head injury. Imaging was performed of patient's head and neck. It was negative for any acute findings. Superficial abrasion cleansed in the ER and Band-Aid applied. Patient educated on signs of infection to watch for. I discussed with patient all findings and diagnostic testing as well as the need to follow-up with PCP for further evaluation and treatment or return to the ER if any new or worsening symptoms. Strict return precautions were also discussed at length. Patient voiced understanding and agreement with the plan. Patient is hemodynamically stable at the time of disposition. Dragon Disclaimer: Michelle Disclaimer: This electronic medical record was generated, in whole or in part, using a voice recognition dictation system. Departure Departure: Impression: Primary Impression: Head injury Qualified Codes: S09.90XA - Unspecified injury of head, initial encounter Disposition: HOME / SELF CARE / HOMELESS Condition: GOOD Referrals: COLETTE WOLF MD (PCP) Patient Instructions: Head Injury, Adult Additional Instructions: You were seen in the ER today for head injury. CT scan of your head and neck was negative for any acute findings. Your laceration was cleaned and a dressing placed. Please monitor this laceration for any signs of infection such as redness, warmth, swelling, drainage. You should follow-up with your primary care provider tomorrow regarding your ER visit today. You can take Tylenol or ibuprofen for your pain at home and apply ice. If you develop headache, vision changes, uncontrollable nausea or vomiting, altered mental status please return to the ER immediately. EMERGENCY DEPARTMENT GENERAL DISCHARGE INSTRUCTIONS Thank you for coming to [facility] (ED) today and trusting us with you care. We trust that you had a positivie experience in our Emergency Department. If you wish to speak to the department management, you may call the director at [phone]. YOUR FOLLOW UP INSTRUCTIONS ARE FOLLOWS: 1. Do you have a private Doctor? If you do not have a private doctor, please ask for a resource list of physicians or clinics that may be able to assist you with follow up care. 2. The Emergency Physician has interpreted your x-rays. The X-Ray specialist will also review them. If there is a change in the findings, you will be notified in 48 hours when at all possible. 3. A lab test or culture has been done, your results will be reviewed and you will be notified if you need a change in treatment. ADDITIONAL INSTRUCTIONS AND INFORMATION: 1. Your care today has been supervised by a physician who is specially trained in emergency care. Many problems require more than one evaluation for a complete diagnosis and treatment. We recommend that you schedule your follow up appointment as recommended to ensure complete treatment of you illness or injury. If you are unable to obtain follow up care and continue to have a problem, or if your condition worsens, we recommend that you return to the ED. 2. We are not able to safely determine your condition over the phone nor are we able to give sound medical advice over the phone. For these safety reasons, if you call for medical advice we will ask you to come to the ED for further evaluation. 3. If you have any questions regarding these discharge instructions please call the ED at [phone]. SAFETY INFORMATION: In the interest of safety, wellness, and injury prevention; we encourage you to wear your sealbelt, if you smoke; quite smoking, and we encourage family to use a protective helmet for bicycling and other sporting events that present an increased risk for head injury. IF YOUR SYMPTOMS WORSEN OR NEW SYMPTOMS DEVELOP, OR YOU HAVE CONCERNS ABOUT YOUR CONDITION; OR IF YOUR CONDITION WORSENS WHILE YOU ARE WAITING FOR YOUR FOLLOW UP APPOINTMENT; EITHER CONTACT YOUR PRIMARY CARE DOCTOR, THE PHYSICIAN WHOSE NAME AND NUMBER YOU WERE GIVEN, OR RETURN TO THE ED IMMEDIATELY. JUDY DE LA O APRN Oct 11, 2020 13:59
== END 2020-10-11 14:18 | disposition home or self-care (01) ==
LOC: ER 12:01
DX: S00.91XA Abrasion of unspecified part of head, initial encounter (principal); Z91.041 Radiographic dye allergy status; Z86.73 Personal history of transient ischemic attack (TIA), and cerebral infarction without residual deficits; W22.8XXA Striking against or struck by other objects, initial encounter; Y93.89 Activity, other specified; Y92.481 Parking lot as the place of occurrence of the external cause; Y99.8 Other external cause status
CPT/HCPCS: 70450; 72125; 99285